=== PATIENT | female | born 1945 ===

== ENCOUNTER 2016-05-06 21:00 | Inpatient (IN) | payer MEDICARE, OTHER ==
[~2016-05-06] VITALS: Ht 162.6 cm; Wt 94.1 kg
--- NOTE | ~2016-05-06 | HP ---
PATIENT'S NAME: TERRI PRAJAPATI [facility] AGE: 71 Y [address] ROOM: [place] [address] LOCATION: GPCU ADMIT DATE: 05/06/2016 History & Physical DISCHARGE DATE: FAMILY PHYSICIAN: PHYSICIAN, UNKNOWN ATTENDING PHYSICIAN: ELIO COURTNEY DATE OF SERVICE: PRIMARY CARE PHYSICIAN: None. CHIEF COMPLAINT: Left hip fracture. HISTORY OF PRESENT ILLNESS: This is a 71-year-old female who had a fall today. The patient stated that she was alongside of curb today, subsequently she had a fall and fell about two steps. She then started complaining of left hip pain and could not get up. The patient currently rates her pain as 4/10 in intensity. The patient states that this was an accidental fall. She was not lightheaded prior to the fall. She denies any chest pain or shortness of breath currently. Denies any abdominal pain, diarrhea, or constipation. Denies any head trauma, loss of consciousness, or seizures. REVIEW OF SYSTEMS: A 10-point review of systems done and was, otherwise, negative except as mentioned above. HOME MEDICATIONS: Per APR. FAMILY HISTORY: Father at age 54 of myocardial infarction. Mother at age 78 of unknown cause. PAST SURGICAL HISTORY: 1. Left hernia surgery. 2. Umbilical hernia. 3. Breast reduction surgery. 4. Back surgery. 5. Knee surgery. 6. Bunionectomy. PAST MEDICAL HISTORY: 1. Depression. PATIENT'S NAME: TERRI PRAJAPATI [facility] AGE: 71 Y [address] ROOM: [place] [address] LOCATION: GPCU ADMIT DATE: 05/06/2016 History & Physical DISCHARGE DATE: FAMILY PHYSICIAN: PHYSICIAN, UNKNOWN ATTENDING PHYSICIAN: ELIO COURTNEY 2. Arthritis. 3. Hypothyroidism. 4. Chronic back pain. SOCIAL HISTORY: She denies smoking history. She is a former smoker. Occasional alcohol use reported. PHYSICAL EXAMINATION: VITAL SIGNS: Temperature 98.0, pulse 86 and regular, respirations 20, blood pressure 138/69, saturation 96% on room air. GENERAL: The patient is alert and oriented x3. Follows all commands. Moves all extremities. In no acute distress. HEENT: Head; normocephalic, atraumatic. Pupils equal, round, and reactive to light. Extraocular muscles intact. Nares clear. Throat clear. Mucous membranes moist. NECK: Supple. No nuchal rigidity. HEART: Regular rate and rhythm. LUNGS: Clear to auscultation bilaterally. ABDOMEN: Soft, nontender, nondistended. Bowel sounds are present. EXTREMITIES: No clubbing, cyanosis, or edema. The patient has tenderness to palpation of the left hip. Vascular pulses 2+ distally bilaterally. NEUROLOGIC: The patient is alert and oriented x3. Follows all commands. Moves all extremities. Cranial nerves 2 through 12 grossly intact. Deep tendon reflexes 2+/4. Sensation intact to bilateral upper and lower extremities. DIAGNOSTIC STUDIES: CBC was done at [facility] and showed a white count of 9.4, hemoglobin 11.9, hematocrit 37.5, platelets 210. CMP showed sodium 144, potassium 4.1, chloride 110, bicarb 24, BUN 28, creatinine 0.7, glucose 101, calcium 8.4. Total protein 6.9, albumin 3.8, AST 29, ALT 32, alkaline phosphatase 66, total bilirubin 0.5. Phos 4.2, anion gap 14.1, globulin 3.1, GFR more than 60. PT 10.5, INR 1.0, and PTT 27. Prealbumin 29. EKG was done at [facility] and showed sinus rhythm with a rate of 82 beats per minute and no acute ST changes. Chest x-ray was done at [facility] and showed no acute cardiopulmonary abnormality. ASSESSMENT AND PLAN: A 71-year-old female transferred for left hip fracture and definitive orthopedic management. 1. Status post fall. This was an accidental fall. The patient was not lightheaded. She was not syncopal. She did not lose consciousness or hit her head. 2. Left hip fracture. The patient was transferred under Dr. Sweet's care PATIENT'S NAME: TERRI PRAJAPATI [facility] AGE: 71 Y [address] ROOM: [id number] [place], [place] [address] [facility] ADMIT DATE: 05/06/2016 History & Physical DISCHARGE DATE: FAMILY PHYSICIAN: PHYSICIAN, UNKNOWN ATTENDING PHYSICIAN: ELIO COURTNEY for definitive orthopedic management. Further plan per Dr. Sweet. I will place her on Dilaudid for pain control for now. 3. History of hypothyroidism. Continue home medication. 4. Chronic back pain. Continue home medication. 5. Deep vein thrombosis prophylaxis per orthopedic surgeon after the surgery. 6. Code status, full code. Discussed with the patient at the time of admission. 7. Preoperative clearance. The patient is at an average risk for an average risk procedure. Risks, benefits, and alternatives of surgery to be discussed with the surgeon. Risks, benefits, and alternatives of anesthesia to be discussed with the anesthesiologist. We will monitor her very closely in the perioperative period. ELIO COURTNEY MD MT/rossana /[id number] D: [id number] T: [id number] HISTORY & PHYSICAL
--- NOTE | ~2016-05-06 | DS ---
PATIENT'S NAME: TERRI PRAJAPATI [facility] AGE: 71 Y [address] ROOM: [id number] [place], [place] [address] LOCATION: [facility] ADMIT DATE: 05/06/2016 Discharge Summary DISCHARGE DATE: 05/10/2016 FAMILY PHYSICIAN: Benson Salcedo MD ATTENDING PHYSICIAN: Vamsi Ayala FINAL DIAGNOSES: 1. Left hip fracture, status post open reduction and internal fixation. 2. Depression. 3. Chronic back pain. 4. Hypothyroidism. 5. Neuropathy. 6. Vitamin D deficiency. OPTICAL WORKER ON THE CASE: Dr. Sweet. PROCEDURE: ORIF of the left hip. HOSPITAL COURSE: Please see details of admission and H and P by Dr. Ayala. Briefly, the patient was admitted in transfer after being found with a left hip fracture. Dr. Sweet was consulted for orthopedic management. He recommended undergoing ORIF of the left hip. The patient was optimized for surgery. The patient underwent internal fixation on 05/07/2016. Postoperatively, her weightbearing status was 25% on the left lower extremity with no active abduction exercises. Utilize Lovenox for DVT prophylaxis and clindamycin for perioperative antibiotics. The patient's home medications were resumed postoperatively. She worked with Physical Therapy as per her restrictions allowed. She was found to be vitamin D deficient and replacement was initiated. The patient was found to be stable for discharge on 05/10/2016. DIAGNOSTICS ON ADMISSION: White blood cell count was 9.4, hemoglobin 11.9, hematocrit 37.5, platelets were 210. Hemoglobins remained stable throughout her stay. Urinalysis without significant infection or hematuria. On admission, sodium was 144, potassium 4.1, chloride 110, bicarb 24, glucose 101, BUN 28, creatinine 0.7, TSH was 0.573, vitamin D25 was 20. Urine culture was negative. Chest x-asha 05/06/2016 showed cardiac silhouette accentuated by suboptimal inspiration. Lungs are otherwise clear. Left hip x-ray from OR demonstrates placement of a compression screw and short intramedullary vivian fixating in the intertrochanteric fracture of the left hip. No complications identified. Anatomical alignment is noted. DISCHARGE INSTRUCTIONS: The patient is discharged to [facility] bed under the care of Dr. Benson Salcedo with Dr. Kee continuing to follow. Her code status is full code. Diet is regular. Weightbearing status is 25% PATIENT'S NAME: TERRI PRAJAPATI [facility] AGE: 71 Y [address] ROOM: [id number] [place], [place] [address] LOCATION: [facility] ADMIT DATE: 05/06/2016 Discharge Summary DISCHARGE DATE: 05/10/2016 FAMILY PHYSICIAN: Benson Salcedo MD ATTENDING PHYSICIAN: Vamsi Ayala weightbearing on the left lower extremity. Will continue occupational and physical therapies. Use oxygen as needed to maintain saturations greater than 90%. Rehab potential is good. Discharge potential is good. The patient and family are aware of her condition and prognosis on discharge. DISCHARGE MEDICATIONS: 1. Tylenol 1000 mg every 8 hours as needed. 2. Cymbalta 60 mg daily. 3. Lovenox 40 mg subcu daily. 4. Pepcid 20 mg twice daily. 5. Neurontin 800 mg 3 times daily. 6. Levothyroxine 75 mcg daily before breakfast. 7. Provera 10 mg daily. 8. MiraLAX 17 g twice daily. 9. Dulcolax suppository as needed. 10. Milk of magnesia 30 mL daily as needed. 11. Percocet 5/325, 1 to 2 tablets every 4 hours as needed for pain. We do appreciate participating in this patient's care, and thank you very much for the ability to serve her while hospitalized in [facility]. Time spent coordinating details of discharge was 25 minutes of which was spent coordinating with consulting physicians and Care Management, completion of medication reconciliation, and education to the patient and family on the above-mentioned diagnoses. MEMO CHARLES FOR CHERRI LUTHER MD JOE/modl /[id number] d: 05/18/16 0605 t: 05/18/16 1216, DISCHARGE SUMMARY
--- NOTE | ~2016-05-06 | CON ---
PATIENT'S NAME: TERRI PRAJAPATI [facility] AGE: 71 Y [address] ROOM: [address] [address] LOCATION: GPCU ADMIT DATE: 05/06/2016 Consultation DISCHARGE DATE: FAMILY PHYSICIAN: PHYSICIAN, UNKNOWN ATTENDING PHYSICIAN: ELIO COURTNEY DATE OF CONSULTATION: 05/07/2016 CHIEF COMPLAINT: Left hip fracture. HISTORY OF PRESENT ILLNESS: The patient is a 71-year-old female who fell, injuring her left hip. She denies any other injuries. Specifically, denies any head or neck trauma or loss of consciousness. She was seen at an outside hospital. X-rays showed an intertrochanteric hip fracture. She was transferred to [facility], was admitted to the hospitalist, and Orthopedics was consulted. The patient denies any other pain other than the left hip. She denies numbness and tingling. PAST MEDICAL HISTORY: Per the H and P. PAST SURGICAL HISTORY: Per the H and P. MEDICATIONS: Per the H and P. ALLERGIES: PER THE H AND P. PHYSICAL EXAMINATION: GENERAL: Well-developed, well-nourished, female in minimal distress. She is awake, alert, and cooperative with exam. NECK: Supple and nontender. She has full C-spine range of motion without pain. EXTREMITIES: Examination of bilateral upper extremities and right lower extremity reveal no pain to palpation or range of motion. No crepitus or deformity. The extremities are neurovascularly intact. Examination of the left lower extremity reveals pain with any hip motion. Skin is intact over the hip. She is nontender distally over the femur, knee, leg, ankle, or foot. She is able to wiggle her toes. Sensation is intact. DIAGNOSTIC DATA: PATIENT'S NAME: TERRI PRAJAPATI [facility] AGE: 71 Y [address] ROOM: [address] [address] LOCATION: GPCU ADMIT DATE: 05/06/2016 Consultation DISCHARGE DATE: FAMILY PHYSICIAN: PHYSICIAN, UNKNOWN ATTENDING PHYSICIAN: ELIO COURTNEY X-rays were reviewed and show a high intertrochanteric hip fracture. There appears to be a small fragment of the greater trochanteric off as well. Recommendation made for surgical intervention with IM nail versus possible ORIF if we are not able to adequately control the greater trochanteric fragment. Risks and benefits as well as treatment options including nonoperative treatment explained in detail to the patient. She does wish to proceed. She is set up for surgery later today. Preoperative medical clearance has been obtained. MD CHRISTINE KABA/rossana /[id number] d: 05/07/16 1353 t: 05/18/16 1528, CONSULTATION REPORT
[2016-05-06] MEDS ORDERED: MOBIC15 MG PO (22:08)
[2016-05-06] MEDS ORDERED: CYMBALTA60 MG PO (22:08)
[2016-05-06] MEDS ORDERED: PROVERA10 MG PO (22:09)
[2016-05-06] MEDS ORDERED: NEURONTIN800 MG PO (22:09)
[2016-05-06] MEDS ORDERED: LEVOTHROID(SYN75 MCG PO (22:10)
[2016-05-06 23:17] LABS: BASOPHIL % 0.3 %; EOSINOPHIL # 0.4 K/uL (0.0-0.5); EOSINOPHIL % 4.2 %; HEMATOCRIT 37.5 % (33.0-46.0); HEMOGLOBIN 11.9 g/dL (10.0-15.0); IMMATURE GRANULOCYTE # 0.1 K/uL (0.0-0.3); IMMATURE GRANULOCYTE % 0.5 %; LYMPHOCYTE # 1.6 K/uL (0.8-4.0); LYMPHOCYTE % 16.8 %; MCH 31.2 pg (27.0-34.0); MCHC 31.7 gm/dL (32.0-36.5); MCV 98.4 fl (83.0-98.0); MONOCYTE # 0.7 K/uL (0.0-1.0); MONOCYTE % 7.3 %; MPV 10.1 fl (9.4-12.4); NEUTROPHIL # (ANC) 6.7 K/uL (1.8-7.8); NEUTROPHIL % 70.9 %; NRBC % 0 /100WBC (0-0.00); PLATELET COUNT 210 K/uL (150-450); RBC 3.81 M/uL (3.50-5.50); RDW-CV 14.1 % (11.9-14.6); WBC 9.4 K/uL (4.0-11.0)
[2016-05-06 23:26] LABS: PROTIME 10.5 SECONDS (9.6-11.1); PTT 27 SECONDS (25-32)
[2016-05-06 23:34] LABS: ALBUMIN 3.8 gm/dL (3.5-5.0); ALK PHOS 66 IU/L (33-138); ALT 32 IU/L (12-78); ANION GAP 14.1 (10.0-19.0); AST 29 IU/L (10-40); BLOOD UREA NITROGEN 28 mg/dL (6-24); CALCIUM 8.4 mg/dL (8.5-10.5); CHLORIDE 110 mMol/L (96-110); CO2 24 mMol/L (22-32); CREATININE 0.7 mg/dL (0.5-1.1); ESTIMATED GFR (MDRD EQUATION) > 60; PHOSPHORUS 4.2 mg/dL (2.5-4.9); POTASSIUM 4.1 mMol/L (3.7-5.1); SODIUM 144 mMol/L (135-145); TOTAL BILIRUBIN 0.5 mg/dL (0.0-1.5); TOTAL PROTEIN 6.9 g/dL (6.0-8.4)
--- NOTE | 2016-05-07 02:03 | NUR ---
PATIENT CAME FROM [facility] AROUND 2144 FOR A L) HIP FRACTURE. A/0X3. VSS ON RA. PATIENT RATING HER HIP PAIN A 3/10 WHICH PATIENT STATES IS TOLERABLE. IV TO L) AC SL. DOCTOR UP TO SEE PATIENT AND ORDERS OBTAINED.
[2016-05-07 03:09] LABS: BILIRUBIN URINE NEGATIVE (NEGATIVE); BLOOD URINE NEGATIVE /UL (NEGATIVE); COLOR URINE YELLOW (YELLOW); GLUCOSE URINE NEGATIVE (NEGATIVE); KETONE URINE 5 mg/dL (NEGATIVE); LEUKOCYTES URINE 25 /UL (NEGATIVE); NITRITE URINE NEGATIVE (NEGATIVE); PROTEIN URINE NEGATIVE (NEGATIVE); SPEC GRAVITY URINE 1.025 (1.003-1.035); TURBIDITY URINE CLEAR (CLEAR); UROBILINOGEN URINE NORMAL (NORMAL)
[2016-05-07 03:19] LABS: BACTERIA URINE NEGATIVE (NEGATIVE); RBC URINE NEGATIVE #/HPF (NEGATIVE); WBC URINE 0-2 #/HPF (NEGATIVE)
--- NOTE | 2016-05-07 04:19 | NUR ---
Significant Event: A/0X3. RESTING IN BED. REFUSED BEING REPOSITIONED AT TIMES. AFEBRILE. VSS ON 1L. HAD TO PUT PATIENT ON 1L OF 02 AROUND 0145 DUE TO PATIENT BREATHING SHALLOW WHILE SLEEPING AND SATS 87% ON RA. DILUADID GIVEN AROUND 0051 FOR PAIN IN THE L) HIP. PATIENT WAS ABLE TO FIND RELIEF AND IS RESTING COMFORTABLY. IV TO L) AC WITH NS AT 70 ML/H. PATIENT HAS BEEN NPO SINCE MIDNIGHT FOR SURGERY THIS MID AFTERNOON ON THE L) HIP. PERMITS PRINTED BUT NOT SIGNED. RISKS AND BENEFITS NEED DISCUSSED.BECERRA PLACED WITH 400 ML UOP. NO BM THIS SHIFT. 5LBS OF TRACTION PLACED TO THE L) LEG. Follow up: CONTINUE WITH PLAN OF CARE.
[2016-05-08 06:17] LABS: HEMOGLOBIN 9.1 g/dL (10.0-15.0)
[2016-05-08 06:21] LABS: HEMATOCRIT 28.7 % (33.0-46.0)
--- NOTE | 2016-05-08 06:24 | NUR ---
Significant Event: A/0X3. DROWSY BUT AWAKES EASILY TO VOICE. AFEBRILE. VSS ON 1L. ETCO2 IN PLACE. MORPHINE SENIOR IT PROJECT MANAGER IN PLACE FOR PAIN. DEMAND ONLY. SENIOR IT PROJECT MANAGER DOSE OF 1MG 8 MIN LOCKOUT WITH A MAC LIMIT OF 30 MG/4HRS. DELIVERED 3. ALSO GAVE PERCOCET AROUND 2140. PAIN WAS WELL CONTROLLED. PATIENT IS RESTING COMFORTABLY IN BED. TURNED IN BED PER PATIENT REQUEST. IV TO R) HAND WITH LR@ TKO AND MORPHINE SENIOR IT PROJECT MANAGER. IV CLINDAMYCIN X3 DOSES. BECERRA PATENT WITH 1000 MLS. NO BM THIS SHIFT. DRESSING TO L) LEG D/I. HAS SOME SHADOW DRAINAGE TO IT. DRAINAGE MARKED. ICE TO LEG. Follow up: CONTINUE WTIH POC.
--- NOTE | 2016-05-08 11:36 | NUR ---
Introduced self and CM role to Amee and family member who was at bedside. Amee tells me that she as living at home alone prior to coming into us. She was doing all of her own medications and getting around without any DME help. She does have a FWW and 4WW at home to use if she should need it. Has a history of back and knee surgeries so she is familiar with post discharge needs. Talked with her about discharge options, either home with HHC, SWB or home with outpatient therapies. At this time, it is to soon to tell what she will need. Doctor rounded this morning and wrote in the chart she would most likely need SWB, but if she was doing really well with therapies, then she could go home with home health. Amee is open to both of these options. She says she has family around that can transport her to home or SWB and also has people to assist her once she is dismissed. Let her know I would continue to follow and assist and that I would stop by in another day or so to see what her discharge destination might be. No other questions, needs or concerns. Will continue to follow and assist. Plan for either SWB or home.
--- NOTE | 2016-05-08 16:39 | NUR ---
Significant Event: A/OX3, FORGETFUL, NEEDS MULTIPLE REMINDERS TO USE HIP PRECAUTIONS AND TO NOT MOVE AROUND WITHOUT STAFF HELP. VSS ON 1L PER NC. MS DIRECTOR FUNDS DEVELOPMENT WAS D/C'D AT 1500, NOW ON HOURLY ETCO2 X8HR, ETCO2 HAS REMAINED HIGH 30'S MOST OF SHIFT. BECERRA INTACT WITH 1000mL UOP. LEFT HIP DRESSING CHANGED THIS AFTERNOON, SURGICAL INCISONS CLOSED/STAPLED, GAUZE/TAPE DRESSING NOW C/D/I, CSM WNL TO LEFT LEG. PT. TRANSFERS 1-2 ASSIST WITH BELT/WALKER, PT. HAS WORKED WITH PHYSICAL THERAPY X2 TODAY, WALKED IN ROOM ONLY TODAY. SCHEDULED TYLENOL GIVEN TODAY, 1 TAB OF PERCOCET GIVEN AT 1505 FOR PAIN. PT. IS WAITING TO TRANSFER TO 3N TO ROOM 3318. Follow up: CONTINUE WITH POC.
--- NOTE | 2016-05-09 04:17 | NUR ---
Significant Event: A/O X 3. LITTLE FORGETFUL AT TIMES. BEEN REPOSITIONED IN BED 2 ASSIST. DRSGS LEFT HIP TELFA DRSGS HAS VMALL AREA OF SHADOWING BLOODY DRAINAGE. ICE BAGS INTACT X 2 TO LEFT HIP. HAD PERCOCET TAB ONE AT 2119 FOR PAIN RATED A 3, LATER AT A 2, COMFORTABLE. SLEPT THIS SHIFT. BILATERAL CALF PNEUMATICS ON. DENIES NUMBNESS OR TINGLING. ETCO2 MONITOR ON. 02 ON 1L . INCENTIVE SPIROMETER UAGE 1500. WILL TAKE BECERRA OUT AROUND 0600. TAKES FLUIDS OFFERED. IV SALINE LOCKS INTACT. Follow up:
[2016-05-09 06:30] LABS: HEMATOCRIT 27.2 % (33.0-46.0); HEMOGLOBIN 8.4 g/dL (10.0-15.0)
--- NOTE | 2016-05-09 10:30 | NUR ---
1030 Left a message at the [facility] bed to see if they had any open beds? 1200 Called [facility] and spoke to Opal asking if they had a bed? Yes. 1205 introduced self/role to patient. Lives in [place] needs to go somewhere for rehab. Her preference would be [facility] in [place]. Her family doctor is Dr Salcedo in [place]. 1215 Spoke to Edin at [facility], yes they have beds and Dr Salcedo to follow is fine. [address] [facility] called. I asked if they would take someone with a [place] doctor? No.
--- NOTE | 2016-05-09 10:45 | NUR ---
Introduced self/role to patient and his Mima, they live in [place]. He stated they have all the DME they will ever need. Have no concerns about going home and was hopeful it would be today. Wrote my name on his marker board, will continue to follow.
--- NOTE | 2016-05-09 15:42 | NUR ---
Pt alert and oriented. She was weaned off O2 earlier. Uses IS. Dressings x2 to hip were changed with shower. Scant shadow on upper dressing. Pt had guzman removed at 0600 and has voided x2 since then. Has numbness and tingling bilat feet since back surgery. States it is neuropathy. Pt is 25% wt bearing. Takes steps slowly. Up to chair, BSC and did walk to the door for PT. Pt has had ice to hip. Percocet po x2 so far this shift, last at 1250. Hip is bruised and swelling. Pt plans to go to [facility] when discharged.
--- NOTE | 2016-05-09 17:14 | NUR ---
Pt her a percocet at 1710 for pain left hip rated at 3
--- NOTE | 2016-05-10 05:16 | NUR ---
Significant Event: Alert and oriented X3. Vital signs stable. CSM WNL. Dressing to L) hip dry and intact, serosang drainage present. Pt ambulated to bathroom x1 with 1 assist, gait belt and walker. Pt is 25% WB to LLE. No BM this shift. Voiding without difficulty. Minimal pain. Percocet given x2 last at 0255. Scheduled tylenol held, had reached maxed tylenol limit. Possible transfer to [place] [facility] today. Follow up: May need to change percocet to roxicodone if giving scheduled tylenol.
[2016-05-10 06:03] LABS: HEMATOCRIT 27.4 % (33.0-46.0); HEMOGLOBIN 8.8 g/dL (10.0-15.0)
--- NOTE | 2016-05-10 09:00 | NUR ---
Denisse from [place] had left me a message yesterday late afternoon asking me to call her back about patient. 0900 called Denisse back and left a message. 1005 Terese from [facility] called and they may be able to take Sunday or Sunday. 1255 called Denisse and left a message asking her thoughts on patient.
--- NOTE | 2016-05-10 09:20 | NUR ---
0920 Vivienne Deshpande, stated patient was ready for discharge today. Called Edin at [facility] and left a message asking if they can accept today? Charge Nurse Roslyn stated someone was up her late afternoon to pre-screen patient. 1015 Spoke to Audrey at [facility], they can accept but would prefer tomorrow due to having an admission already set up today. I stated patient was ready to go, family is here and I can send then orders now to start processing. Will take today. 1020 Update patient and her family - son and daughter. Son will transport. Patient needed a t-shirt, her turtle neck was too hot. Gave her one. 1025 Orders faxed. Called [facility] and informed person who answered that patient was planning to leave here at 1130. Vivienne Roche notified Dr. Helm. Nurse number given to Joyce charge nurse carlee, KAYLA placed in packet.
--- NOTE | 2016-05-10 10:42 | NUR ---
Pt alert, oriented. She can be forgetful at times. She had Left hip pinning on 05/07. She has 2 incisions, one left hip and smaller one left thigh. They are stapled, ecchymotic, swollen, edges intact. Some serosang drng on dressings today after tomorrows drsg change. Dressings changed today, using 2 island dressings. Pt takes Percocet for pain with good relief. She has peripheral neuropathy bilat feet from "long ago". Pt voids well. Mo BM. Passes flatus. Given Milk of Mag on has been on miralax BID. Pt uses IS and does her bed exercises well. Pt ambulates with 25% weight bearing on left leg with walker and gait belt. Gait is slow but steady. She gets tired out after walking to bathroom.
== END 2016-05-10 11:20 | disposition swing bed (61) | DRG 481 ==
LOC: G3N 21:45 → GPCU 21:45 → G3N 05-08 17:29
PROVIDERS: Orthopaedic Surgery Adult Reconstructive Orthopaedic Surgery; ADMIT Family Medicine
PROC: 0QS706Z Reposition Left Upper Femur with Intramedullary Internal Fixation Device, Open Approach (ICD-10-PCS; principal; 2016-05-07)
DX: S72.142A Displaced intertrochanteric fracture of left femur, initial encounter for closed fracture (principal); D62 Acute posthemorrhagic anemia; G62.9 Polyneuropathy, unspecified; E03.9 Hypothyroidism, unspecified; F32.9 Major depressive disorder, single episode, unspecified; M54.9 Dorsalgia, unspecified; W10.1XXA Fall (on)(from) sidewalk curb, initial encounter
CPT/HCPCS: C1713; C1769; G0009; J1170; J1650; J2270; J3010; J7030; J7120